=== PATIENT | female | born 1980 | race Caucasian/White ===

== ENCOUNTER → 2017-10-08 07:06 | Outpatient (CLI) | payer BC, SELFPAY ==
[2017-10-08 08:45] LABS: Alanine Aminotransferase 17 U/L (12-78); Albumin Level 4.1 gm/dL (3.4-5.0); Albumin/Globulin Ratio 1.3 (1.1-1.8); Alkaline Phosphatase 58 U/L (46-116); Anion Gap 13.9 mEq/L (5-15); Aspartate Amino Transferase 13 U/L (15-37); Bilirubin,Total 0.7 mg/dL (0.2-1.0); Blood Urea Nitrogen 14 mg/dL (7-18); Calcium 9.3 mg/dL (8.5-10.1); Carbon Dioxide 28 mmol/L (21.0-32.0); Chloride 101 mmol/L (98-107); Chol/HDL Ratio 4.7 (1-3.5); Cholesterol 214 mg/dL (140-200); Creatinine,Serum 0.76 mg/dL (0.55-1.02); Estimated Glomerular Filt Rate 85 ml/min (>60); GFR (African American) 103 ML/MIN (>60); Globulin 3.1 gm/dl (1.3-3.2); Glucose 103 mg/dL (74-106); HDL Cholesterol 46 mg/dL (29-89); LDL Cholesterol 153 mg/dL (0-130); Potassium 3.9 mmoL/L (3.5-5.1); Sodium 139 mmol/L (136-145); Total Protein,Serum 7.2 gm/dL (6.4-8.2); Triglycerides 75 mg/dL (30-200); VLDL Cholesterol 15 mg/dL (0-40)
[2017-10-10 06:20] LABS: Vitamin B12 1364 pg/mL (232-1245)
== END ==
PROVIDERS: Visit Provider Nurse Practitioner Family
DX: Z00.00 Encounter for general adult medical examination without abnormal findings (principal); E78.00 Pure hypercholesterolemia, unspecified; E53.8 Deficiency of other specified B group vitamins
CPT/HCPCS: 36415; 80053; 80061; 82607

== ENCOUNTER → 2018-04-09 12:21 | Outpatient (CLI) | payer BC, SELFPAY ==
[2018-04-09 14:45] LABS: HCG,Quantitative 451 mIU/mL
== END ==
PROVIDERS: Visit Provider Internal Medicine Adolescent Medicine
DX: N91.2 Amenorrhea, unspecified (principal)
CPT/HCPCS: 36415; 84702

== ENCOUNTER → 2018-04-11 09:54 | Outpatient (CLI) | payer BC, OTHER, SELFPAY ==
[2018-04-11 15:57] LABS: HCG,Quantitative 417 mIU/mL
== END ==
PROVIDERS: Visit Provider Internal Medicine Adolescent Medicine
DX: N91.2 Amenorrhea, unspecified (principal)
CPT/HCPCS: 36415; 84702

== ENCOUNTER → 2018-04-14 08:25 | Outpatient (CLI) | payer BC, OTHER, SELFPAY ==
--- NOTE | 2018-04-14 08:34 | US_ITS ---
US OB transvaginal HISTORY: ITS.REASON: US OB Dates- R/O Ectopic check dates ORDERING PHYSICIAN: Usman Roth MD PATIENT AGE: 37 years COMPARISON: None FINDINGS: There is a small anechoic area within the endometrium which measures approximately 3 mm. This could be due to a very small gestational sac. No pole or heart tones are present. There is a hypoechoic area within the left ovary which measures 15 x 12 mm. There are low-level internal echoes within this region with hypervascular flow around this area. Small right ovarian cyst also noted at 1 cm. No cul-de-sac fluid. IMPRESSION: 1. 3 mm hypoechoic area within the endometrium which could be due to a small gestational sac or pseudogestational sac. 2. Complex left ovarian cyst. 3. Cannot confirm viable intrauterine gestation at this time. Ectopic cannot be excluded based on these findings. Suggest correlation with serial beta-hCGs and follow-up ultrasound
[2018-04-14 14:00] LABS: HCG Qualitative, Serum Positive (Negative)
== END ==
PROVIDERS: Nurse Practitioner Family; PCP Internal Medicine Adolescent Medicine; Visit Provider Nurse Practitioner Obstetrics & Gynecology
DX: O00.91 Unspecified ectopic pregnancy with intrauterine pregnancy (principal); O26.841 Uterine size-date discrepancy, first trimester
CPT/HCPCS: 36415; 76817; 84703

== ENCOUNTER → 2018-04-17 08:52 | Outpatient (CLI) | payer BC, OTHER, SELFPAY ==
[2018-04-17 11:09] LABS: HCG,Quantitative 2137 mIU/mL
== END ==
PROVIDERS: Visit Provider Nurse Practitioner Obstetrics & Gynecology
DX: Z34.90 Encounter for supervision of normal pregnancy, unspecified, unspecified trimester (principal)
CPT/HCPCS: 36415; 84702

== ENCOUNTER 2018-04-20 01:09 | Observation (INO) ==
[2018-04-20 01:29] LABS: Appearance,Urine SL CLOUDY (Clear); Bilirubin,Urine Negative (Negative); Blood, Urine TRACE-I (Negative); Color,Urine YELLOW (Yellow); Glucose,Urine (UA) Negative (Negative); Ketones,Urine Negative (Negative); Leukocyte Esterase,Urine Negative (Negative); Microscopic, Urine URINE MICROSCOPIC (MICROSCOPIC); Protein,Urine Negative (Negative); Specific Gravity, Urine >= 1.030 (1.005-1.030); Urobilinogen,Urine 0.2 EU/dl (0.2)
[2018-04-20 01:33] LABS: Amorphous Sediment,Urine Trace /lpf; Squamous Epithelial Cell,Urine 20-50 #/hpf (0-5)
[2018-04-20 01:35] LABS: Basophils # 0.1 K/mm3 (0-0.2); Basophils % 0.6 % (0.1-2.0); Eosinophils # 0.3 K/mm3 (0.0-0.4); Eosinophils % 3.1 % (0.1-12.0); Hematocrit 37.9 % (37.0-47.0); Hemoglobin 12.6 g/dL (12.2-16.2); Lymphocytes # 2.1 K/mm3 (0.7-4.5); Lymphocytes % 25.6 % (10-50); Mean Corpuscular HGB Conc 33.2 g/dL (31.8-35.4); Mean Corpuscular Hemoglobin 29.1 pg (27.0-31.2); Mean Corpuscular Volume 87.6 fl (81-99); Mean Platelet Volume 7.3 fl (7.4-10.4); Monocytes # 0.5 K/mm3 (0.1-1.0); Monocytes % 5.9 % (1.7-9.3); Neutrophils # 5.3 K/mm3 (1.8-7.8); Neutrophils % 64.7 % (37.0-80.0); Platelet Count 311 K/mm3 (142-424); Red Blood Count 4.33 M/mm3 (4.20-5.40); Red Cell Distribution Width 12.3 % (11.5-17.5); White Blood Count 8.2 K/mm3 (4.8-10.8)
--- NOTE | 2018-04-20 01:39 | Emergency Department Note ---
ED Disposition Clinical Impression: Ectopic Qualifiers: Location of ectopic : tubal Intrauterine status: without intrauterine Laterality: right Qualified Code(s): O00.101 - Right tubal without intrauterine Disposition: Still a Patient Condition on Discharge: Fair Referrals: Arpan Cary MD [Primary Care Provider] - - Critical Care Critical Care Time: No Attestation: On 04/20/18, the high probability of a clinically significant, sudden or life threatening deterioration of the following system(s) required my full and direct attention, intervention and personal management. The time I documented below is in addition to time spent performing reported procedures but includes the following listed in this critical care notation. Medical Decision Making - [place] Inquiry Pt receiving controlled substance: No Vital Signs: 04/20/18 01:10 04/20/18 01:40 Temperature 98.6 F Temperature Source Oral Pulse Rate [Right Brachial] 80 84 Respiratory Rate 16 16 Blood Pressure [Right Arm] 138/83 134/81 Blood Pressure Mean [Right Arm] 101 98 Blood Pressure Source [Right Arm] Automatic Cuff Automatic Cuff Blood Pressure Position [Right Arm] Sitting Sitting 02 Sat by Pulse Oximetry 98 98 Oxygen Delivery Method Room Air Room Air - Lab Data Lab Results 04/20/18 01:13: Urine Color Yellow, Urine Appearance Sl cloudy, Urine pH 6.0, Ur Specific [place] >= 1.030, Urine Protein Negative, Urine Glucose (UA) Negative, Urine Ketones Negative, Urine Blood Trace-i, Urine Nitrate Negative, Urine Bilirubin Negative, Urine Urobilinogen 0.2, Ur Leukocyte Esterase Negative, Urine RBC 3-5, Ur Squamous Epith Cells 20-50, Amorphous Sediment Trace 04/20/18 01:20: WBC 8.2, RBC 4.33, Hgb 12.6, Hct 37.9, MCV 87.6, MCH 29.1, MCHC 33.2, RDW 12.3, Plt Count 311, MPV 7.3 L, Neut % (Auto) 64.7, Lymph % (Auto) 25.6, [place] % (Auto) 5.9, Eos % (Auto) 3.1, Baso % (Auto) 0.6, Neut # (Auto) 5.3, Lymph # (Auto) 2.1, Bee # (Auto) 0.5, Eos # (Auto) 0.3, Baso # (Auto) 0.1 04/20/18 01:20: Sodium 137, Potassium 4.0, Chloride 102, Carbon Dioxide 24, Anion Gap 15.0, BUN 11, Creatinine 0.80, Estimated Creat Clear 96, Estimated GFR 80, Est GFR ( Amer) 97, Glucose 103, Calcium 9.1, Total Bilirubin 0.4, AST 14 L, ALT 23, Alkaline Phosphatase 54, Total Protein 7.8, Albumin 3.9, Globulin 3.9 H, Albumin/Globulin Ratio 1.0 L, HCG, Quant 3789 H Result diagrams: 04/20/18 01:20 04/20/18 01:20 Orders (Tests/Meds): ED MEDICATIONS Generic Name Dose Route Start Last Admin Trade Name Freq PRN Reason Stop Dose Admin Sodium Chloride 10 ml 04/20/18 01:20 Saline Flush 10ml Syringe IV 05/20/18 01:19 NEEDED PRN Maintain IV Site ORDERS Category Date Time Status UA [Urinalysis and Microscopic] Stat Lab 04/20/18 01:13 Ordered US OB transvaginal Stat Ultrasound 04/20/18 01:26 Ordered - US Data US Images: Pelvis Findings Narrative: As per [facility] procedure, ultrasound report received from laser/electro optics technician: No intrauterine . The previously seen 3 mm hypoechoic area in the endometrium is gone. Right adnexal mass with ring of fire sign. Consistent with ectopic . No free pelvic fluid or signs of hemorrhage/rupture. - Physician Consults Physician Consulted: Onesimo Time: 02:52 Reason -: Obstetrical Eval/Care Comment/Response: Agrees to admit the patient to the hospital. We discussed the patient's clinical information, including history, exam, laboratory and radiology results and ED course. Per hospital procedure, I will write temporary bridge inpatient orders on the patient. Specific orders requested by the admitting physician: Admit and he will take the patient to surgery this morning. General Adult HPI - General Chief complaint: Abdominal Pain Stated complaint: Six weeks ;Abdominal Pain Time Seen by Provider: 04/20/18 01:39 Mode of Arrival: Ambulatory Limitations: No Limitations Description of Symptoms (Recalled from ER Triage Doc. by RN): Pt c/o lower stabbing abd pain. Advises she is 6 weeks Denies any vaginal bleeding - History of Present Illness HPI narrative: Currently , 5 para 2 AB 2 last normal menstrual period 11/19/18. Previous tubal ligation reversal. Complains of sharp suprapubic pain to the right of midline that woke her up about an hour ago. Pain has decreased since onset, but is still present. No vaginal bleeding. Had quantitative beta-hCG on 04/09/18 451. 417 on 04/11/18. 2137 on 04/17/18. Pelvic ultrasound 04/16/18: IMPRESSION: 1. 3 mm hypoechoic area within the endometrium which could be due to a small gestational sac or pseudogestational sac. 2. Complex left ovarian cyst. 3. Cannot confirm viable intrauterine gestation at this time. Ectopic cannot be excluded based on these findings. Suggest correlation with serial beta-hCGs and follow-up ultrasound - Related Data Home Medications Medication Instructions Recorded Confirmed No Known Home Medications 04/11/18 04/20/18 Allergies Allergy/AdvReac Type Severity Reaction Status Date / Time No Known Allergies Allergy Verified 04/11/18 08:54 [facility] History - Hepatitis A Screen Drug use history?: No High risk sexual behaviors?: No History of sexually transmitted infection?: No Currently employed?: No Childcare worker?: No Do you have indoor plumbing?: Yes Do you have electricity?: Yes Attestation statement:: This patient has been screened for Hepatitis A risk factors. I have reviewed the patient's past medical history: Yes Medical History: Denies:: Cancer, Diabetes Mellitus Type 1, Diabetes Mellitus Type 2, MRSA Amputation: No Fractures: No - Social History Alcohol Intake: never - Psychiatric History Expresses thoughts of harming self/others: None Suicide Plan Description: No Plan Family Hx:: No significant family history Para: 2 ROS Obtained: Yes Systems reviewed as appropriate & no additional complaints - Gastrointestinal Gastrointestingal: Reports: abdominal pain. Denies: diarrhea, vomiting - Genitourinary Female Genitourinary: Denies abnormal vaginal bleeding, Denies dysuria Physical Exam - General General appearance: alert, in no apparent distress - Head Head exam: atraumatic, normocephalic - Eye Eye exam: Present: PERRL, EOMI - ENT ENT exam: Present: mucous membranes moist - Neck Neck exam: Present: normal inspection, trachea midline - Chest Chest inspection: Present: normal inspection, symmetric chest wall rise - Respiratory Respiratory exam: Present: normal lung sounds bilaterally. Absent: respiratory distress - Cardiovascular Cardiovascular exam: Present: regular rate, normal rhythm, normal heart sounds - Abdominal Exam Abdominal exam: Present: soft, tenderness (Midline and right suprapubic area). Absent: distention, guarding, rebound, rigidity - Extremities Exam Extremities exam: Present: normal inspection - Neurological Exam Neurological exam: Present: alert, oriented X3 - Psychiatric Psychiatric exam: Present: normal affect, normal mood - Skin Skin exam: Present: warm, dry
[2018-04-20 02:09] LABS: Albumin Level 3.9 gm/dL (3.4-5.0); Bilirubin,Total 0.4 mg/dL (0.2-1.0); Calcium 9.1 mg/dL (8.5-10.1); Globulin 3.9 gm/dl (1.3-3.2); Total Protein,Serum 7.8 gm/dL (6.4-8.2)
--- NOTE | 2018-04-20 06:40 | Progress Note ---
Internal Medicine - PN: Subj *Date: 04/20/18 *Time: 06:28 Interval history: This 37-year-old 5, para 2 (2 vaginal deliveries), AB 2 white female was admitted through the emergency room with the following history: In 2003 she had a tubal ligation. In 2011 she underwent a tubal reversal, but did not conceive. Subsequently she had a hysterosalpingogram which showed complete blockage of her right tube and patency of her left tube. However she still did not conceive until recently. The other surgery was left scopic cholecystectomy. When seen by Dr. Roth, her initial beta hCG on 04/09/18 was 451, and a subsequent one on 08/10/2017 actually dropped slightly to 417. Her next beta-hCG on 04/17/2018 was 2137. The patient arrived in the emergency room shortly after midnight this morning with a history of sudden onset of severe lower abdominal pain which had by that time localized to the right side. There was no vaginal bleeding. Hemoglobin/hematocrit was 12.6/37.9%. Blood type a positive. Beta hCG this morning is 3789. Her last. Of 03/10/18 puts her at 6 weeks of gestation. A vaginal ultrasound was done and is highly suggestive of a right-sided ectopic with a "ring of fire" evident and no evidence of intrauterine gestation. Her physical examination is otherwise completely normal. She is relatively comfortable at this time after being medicated. She has no known allergies to medications. I have discussed the situation and detail with the patient and her . They are unsure about trying for another , given the high risk of a subsequent ectopic. The plan is for a laparoscopic procedure to include right salpingectomy, followed by chromic pertubation to assess the patency (or lack thereof) of the left tube. If that tube appears to be blocked, tubal fulguration will be carried out on that side to obviate the risk of future ectopics. The patient and her understand the risks and benefits of the procedure and the possible need for an open procedure should it become necessary. Exam Vital signs and Labs for Last 24 Hours: Temp Pulse Resp BP Pulse Ox 98.6 F 65 18 108/65 L 98 04/20/18 04:18 04/20/18 04:18 04/20/18 04:18 04/20/18 04:18 04/20/18 04:18 Laboratory Results - last 24 hr 04/20/18 01:13: Urine Color Yellow, Urine Appearance Sl cloudy, Urine pH 6.0, Ur Specific [place] >= 1.030, Urine Protein Negative, Urine Glucose (UA) Negative, Urine Ketones Negative, Urine Blood Trace-i, Urine Nitrate Negative, Urine Bilirubin Negative, Urine Urobilinogen 0.2, Ur Leukocyte Esterase Negative, Urine RBC 3-5, Ur Squamous Epith Cells 20-50, Amorphous Sediment Trace 04/20/18 01:20: WBC 8.2, RBC 4.33, Hgb 12.6, Hct 37.9, MCV 87.6, MCH 29.1, MCHC 33.2, RDW 12.3, Plt Count 311, MPV 7.3 L, Neut % (Auto) 64.7, Lymph % (Auto) 25.6, [place] % (Auto) 5.9, Eos % (Auto) 3.1, Baso % (Auto) 0.6, Neut # (Auto) 5.3, Lymph # (Auto) 2.1, [place] # (Auto) 0.5, Eos # (Auto) 0.3, Baso # (Auto) 0.1 04/20/18 01:20: Sodium 137, Potassium 4.0, Chloride 102, Carbon Dioxide 24, Anion Gap 15.0, BUN 11, Creatinine 0.80, Estimated Creat Clear 96, Estimated GFR 80, Est GFR ( Amer) 97, Glucose 103, Calcium 9.1, Total Bilirubin 0.4, AST 14 L, ALT 23, Alkaline Phosphatase 54, Total Protein 7.8, Albumin 3.9, Globulin 3.9 H, Albumin/Globulin Ratio 1.0 L, HCG, Quant 3789 H 04/20/18 04:35: Blood Type A Positive, Antibody Screen Negative I & O for Last 24 hours: Intake & Output 04/17/18 04/18/18 04/19/18 04/20/18 11:59 11:59 11:59 11:59 Weight 140 lb
--- NOTE | 2018-04-20 07:26 | Progress Note ---
[facility] Anesthesia Checklist - Patient Identification Patient Identification: Arm Band, Verbal (Name & ) - Structural Data Admitted From: Inpatient Planned Operative Procedure/s: laporoscopy Consent for Planned Operative Procedure(s) Verified: Yes Verified Documents: History and Physical - NPO Status Verified Time NPO: 00:00 - Additional verifications Patient : Yes Anesthesia Reactions: No Hx Blood Transfusions: No Blood Transfusion Reaction: No Cephalosporin Allergy: No Previous Colonoscopy: No - Cardiovascular Assessment Heart Sounds: S1 & S2 Pulse Strength: Baseline Pulse Rhythm: Regular Peripheral Edema: No - Airway Assessment C-Spine Mobility Assessed: Yes TMJ Mobility Assessed: Yes Dentition: Good Dentition - Neurological Assessment Level of Consciousness: Awake, Alert, Appropriate Hx Seizures: No Numbness or tingling in extremities: No - Anesthesia Plan Anesthesia Risk discussed: Yes Anesthesia Plan: Verified ASA Class: II Anesthesia Type: General [facility] History I have reviewed the patient's past medical history: Yes Medical History: Denies:: Cancer, Diabetes Mellitus Type 1, Diabetes Mellitus Type 2, MRSA Other Surgeries: Yes: Cholecystectomy, Tubal Ligation. No: Amputation: No Fractures: No - *Social History Alcohol Intake: never - Psychiatric History Expresses thoughts of harming self/others: None Suicide Plan Description: No Plan *Family Hx:: No significant family history Para: 2
--- NOTE | 2018-04-20 08:58 | Progress Note ---
[facility] Anesthesia Record Part I Intake, IV Amount: 500 Estimated blood loss (mL): 10 Urine output (mL): 0 Blood Products used (#): none Blood Pressure: 114/78 SaO2: 96 Pulse Rate: 63 Respiratory Rate: 20 Temperature: 97.4 F Patient is:: Drowsy, Stable Stable to PACU at:: 08:58
--- NOTE | 2018-04-20 08:59 | Progress Note ---
[facility] Anesthesia Record Part II Discharge Time: 09:28 Destination: Obstetric Gynecology Dept PACU nurse assessment reviewed?: Yes Patient Condition:: Good Anesthesia Complications:: None
--- NOTE | 2018-04-20 09:03 | Operative Note ---
Date of procedure: 04/20/18 Pre-op Diagnosis:: Right ectopic Post-op Diagnosis:: 1. Right distal tubal ectopic . 2. Patent left fallopian tube. Procedure performed:: 1. Pelviscopic right salpingo-oophorectomy. 2. Chromic pertubation. Surgeon:: Pavan Echols MD FOXING PAINTER:: Arpan Berg Anesthesia: GETA Estimated blood loss (mL): 100 Operative findings:: 1. Right distal tubal ectopic , in the process of tubal . 2. Right tubal adherence to the right ovary. 3. Ultimate patency of the left tube after encountering initial resistance to chromic pertubation. Operative note:: After the patient was prepped and draped in usual fashion and general with no palpable adnexal masses. A weighted speculum was placed within the posterior fourchette of the vagina, and the anterior lip of the cervix was grasped with a single-tooth tenaculum. The cervix was easily dilated to #14 Hegar dilators, and then a HUMI uterine elevator was inserted, and the bulb inflated for easy uterine manipulation during the laparoscopy. After appropriate regloving, the skin on either side of the umbilicus was tented up with towel clips. A small incision was made in the base of the umbilicus with a knife, and a Veress needle was inserted into the abdominal cavity. After demonstration of negative press ure, an adequate pneumoperitoneum was created with carbon dioxide gas. The Veress needle was then replaced with a trocar and cannula, using the Groupspeak system, and the trocar replaced with a laparoscope. The uterus was slightly enlarged and symmetrical. It was coated with blood. Old blood was evident around the reflection of the bladder peritoneum anteriorly and in the cul-de-sac. This was suctioned. The left tube and ovary appeared normal, albeit with a 1-2 cm left ovarian cyst. Fimbriated end of the left tube also appeared normal. On the right side, the tube was followed out to its most distal segment, where an obvious unruptured ectopic was present. A small amount of blood was present at the fimbria, suggesting that a tubal was in process. The distal end of the tube was densely adherent to the normal- appearing ovary. Consideration was given to the likely interruption of ovarian blood supply with an attempt at dissecting the ovary free, and the vascular nature of that area. It was decided to perform a right salpingo-oophorectomy. After transillumination and under direct visualization, accessory ports were placed in the right and left lower quadrants. Using a combination of endo- Babcocks and Endo RENEE staplers, the right ovarian and infundibulopelvic ligaments were crossclamped and stapled, thus removing the right adnexa with its associated ectopic. The staple line was cauterized for further hemostasis. At this point chromic pertubation was carried out with methylene blue dye through the HUMI uterine elevator. Initial resistance was met, consistent with intratubal adhesions, but resistance was overcome, and blue dye was then seen to flow freely through the left fimbria. The dye was suctioned. The pelvis was inspected for any other pathology, and none was found. An Endopouch basket was placed through the left lower quadrant port and the right adnexal specimen was placed within it and brought up through that port. The pneumoperitoneum was reduced, and the instruments were removed under direct visualization. The skin incisions were infused with a dilute solution of Marcaine, as a local anesthetic, and closed with subcuticular sutures of 3-0 Vicryl. The wounds were appropriately dressed. The HUMI was deflated and removed. The sponge and needle counts correct. The estimated blood loss was 100 cc. The patient tolerated the procedure well, was taken to PACU in excellent condition. She will be discharged today, if her vital stable. Her blood type is A+, and therefore she is not a candidate for RhoGam. Condition: stable Disposition: PACU Specimens:: Right tube and ovary. Complications:: None.
--- NOTE | 2018-04-20 09:43 | Discharge Summary ---
General - General Admission date:: 04/20/18 Discharge date: 04/20/18 (This 37-year-old 5, para 2, AB 2 white female was admitted to the emergency room with right-sided pelvic pain and an ultrasound consistent with a right ectopic . Her history included a tubal ligation in 2007 and a tubal reanastomosis in 2011. Her blood type is A+. She was taken to the operating room, where she underwent a pelviscopic right salpingo-oophorectomy for a distal tubal ectopic , adherent to the right ovary. Chromic pertubation initially met with resistance, but ultimately led to free flow of dye through the left tube, demonstrating patency. The estimated blood loss for the procedure was 100 cc. The patient tolerated the procedure well, and was recovered in good condition. She will be discharged today, if her vital signs are stable. She is given a prescription for Lortab 5/325 #20), 1 p.o. q. 4-6h as needed pain. She is given appropriate instructions as to diet, exercise, and wound care, and she is to follow-up with Dr. Roth (her regular mechanical designer) in 1 week.) Objective Vital signs: Temp Pulse Resp BP Pulse Ox 97.4 F L 63 20 114/78 100 04/20/18 08:58 04/20/18 08:58 04/20/18 08:58 04/20/18 08:58 04/20/18 07:37 Results Labs on day of discharge: Labs from last 24 hours 04/20/18 04/20/18 04/20/18 04:35 01:20 01:20 WBC 8.2 RBC 4.33 Hgb 12.6 Hct 37.9 MCV 87.6 MCH 29.1 MCHC 33.2 RDW 12.3 Plt Count 311 MPV 7.3 L Neut % (Auto) 64.7 Lymph % (Auto) 25.6 [place] % (Auto) 5.9 Eos % (Auto) 3.1 Baso % (Auto) 0.6 Neut # (Auto) 5.3 Lymph # (Auto) 2.1 [place] # (Auto) 0.5 Eos # (Auto) 0.3 Baso # (Auto) 0.1 Sodium 137 Potassium 4.0 Chloride 102 Carbon Dioxide 24 Anion Gap 15.0 BUN 11 Creatinine 0.80 Estimated Creat Clear 96 Estimated GFR 80 Est GFR ( Amer) 97 Glucose 103 Calcium 9.1 Total Bilirubin 0.4 AST 14 L ALT 23 Alkaline Phosphatase 54 Total Protein 7.8 Albumin 3.9 Globulin 3.9 H Albumin/Globulin Ratio 1.0 L HCG, Quant 3789 H Urine Color Urine Appearance Urine pH Ur Specific [place] Urine Protein Urine Glucose (UA) Urine Ketones Urine Blood Urine Nitrate Urine Bilirubin Urine Urobilinogen Ur Leukocyte Esterase Urine RBC Ur Squamous Epith Cells Amorphous Sediment Blood Type A Positive Antibody Screen Negative 04/20/18 01:13 WBC RBC Hgb Hct MCV MCH MCHC RDW Plt Count MPV Neut % (Auto) Lymph % (Auto) [place] % (Auto) Eos % (Auto) Baso % (Auto) Neut # (Auto) Lymph # (Auto) [place] # (Auto) Eos # (Auto) Baso # (Auto) Sodium Potassium Chloride Carbon Dioxide Anion Gap BUN Creatinine Estimated Creat Clear Estimated GFR Est GFR ( Amer) Glucose Calcium Total Bilirubin AST ALT Alkaline Phosphatase Total Protein Albumin Globulin Albumin/Globulin Ratio HCG, Quant Urine Color Yellow Urine Appearance Sl cloudy Urine pH 6.0 Ur Specific [place] >= 1.030 Urine Protein Negative Urine Glucose (UA) Negative Urine Ketones Negative Urine Blood Trace-i Urine Nitrate Negative Urine Bilirubin Negative Urine Urobilinogen 0.2 Ur Leukocyte Esterase Negative Urine RBC 3-5 Ur Squamous Epith Cells 20-50 Amorphous Sediment Trace Blood Type Antibody Screen Discharge Plan - Patient Discharge Instructions - Follow up Plan Home Medications: Home Medications Medication Instructions Recorded Confirmed Type No Known Home Medications 04/11/18 04/20/18 History Prescriptions/Medication Reconciliation: No Action No Known Home Medications
[2018-04-20 10:23] LABS: Hematocrit 35.2 % (37.0-47.0); Hemoglobin 11.5 g/dL (12.2-16.2)
[2018-04-20 10:49] VITALS: BP 118/68
== END 2018-04-20 11:55 | disposition home or self-care (01) ==
LOC: OB 01:09 → ER 01:09 → OB 03:52
PROVIDERS: ADMIT Obstetrics & Gynecology; ATTEND Nurse Practitioner Obstetrics & Gynecology
DX: O00.101 Right tubal pregnancy without intrauterine pregnancy
CPT/HCPCS: 36415; 76817; 80053; 81001; 84702; 85014; 85018; 85025; 86850; 94761; 99284; G0378; J0131; J2405; J2710

== ENCOUNTER 2020-01-19 17:30 | Emergency (ER) | payer OTHER, SELFPAY ==
[2020-01-19 18:10] VITALS: BP 129/84; PULSE 77; RESP 20; O2SAT 100; BMI 22.3
--- NOTE | 2020-01-19 18:48 | HMH.EDUTC ---
[facility] [place] Disposition Clinical Impression: UTI (urinary tract infection) Qualifiers: Urinary tract infection type: site unspecified Hematuria presence: with hematuria Qualified Code(s): N39.0 - Urinary tract infection, site not specified Disposition: Home, Self-Care Condition on Discharge: Good Instructions: Trimethoprim/Sulfamethoxazole (Alternative Therapy), Urinary Tract Infection, DI for Urinary Tract Infection (UTI), Phenazopyridine Additional Instructions: *Increase fluids. Water not Soda or Tea *Start antibiotic immediately and be sure to take as ordered for the FULL length of time although you should start to see improvement over the next 48 hours *Pyridium as needed Remember this medication will turn your urine [place]. This is normal but it will stain what ever it gets on *You should not use Pyridium for more than 48 hours. If so , follow up with your primary physician to review urine culture and ensure that antibiotic is adequate for infection *Be SURE to follow up anytime for new or worsening symptoms with your family doctor. AND in 48 hours for urine culture results with your family doctor, if you do not have a doctor then you may call back to the [facility] for urine culture results and further treatment. We do recommend that you choose and establish care with a Primary Care Physician. AND follow up with them in 10-14 days to repeat UA to ensure infection is resolved and blood no longer present *Be sure to let your PCP know that we sent urine cultures from the [facility] so they can follow up to ensure that you area the on the correct antibiotic Call your doctor office and make appointment for 48 hours (2 days from today) to follow up and get the results of your urine culture and further treatment Return if needed Straight to ER if any worsening of symptoms or fever, chills, body aches or abdominal pain You had blood in your urine make sure to follow up with Family Doctor as advised Prescriptions: Sulfamethoxazole/Trimethoprim [Bactrim DS tablet] 1 each PO BID 10 Days #20 tab Transmission Status: Received by [facility] #[id number] Phenazopyridine HCl [Pyridium 200mg Tablet] 200 pow PO TID #6 tab Transmission Status: Received by [facility] #[id number] Referrals: Arpan Cary MD [Primary Care Provider] - As needed Time of Disposition: 18:53 Medical Decision Making - Hood Inquiry Pt receiving controlled substance: No Hood was queried for this patient: No Vital Signs: 01/19/20 18:10 01/19/20 19:01 Temperature 98.2 F Pulse Rate 77 Pulse Rate [Right Brachial] 77 Respiratory Rate 20 20 Blood Pressure 129/84 Blood Pressure [Right Arm] 129/84 Blood Pressure Mean [Right Arm] 99 Blood Pressure Source [Right Arm] Automatic Cuff Blood Pressure Position [Right Arm] Sitting 02 Sat by Pulse Oximetry 100 Oxygen Delivery Method Room Air - Lab Data Lab results reviewed: Yes: I reviewed the patient's lab results. Lab Results 01/19/20 17:50: Urine Color Yellow, Urine Appearance Clear, Urine pH 6.0, Ur Specific [place] 1.020, Urine Protein 1+, Urine Glucose (UA) Negative, Urine Ketones Negative, Urine Blood 3+, Urine Nitrate Positive A, Urine Bilirubin Negative, Urine Urobilinogen 0.2, Ur Leukocyte Esterase 2+ A Orders (Tests/Meds): ED MEDICATIONS Discontinued Medications Generic Name Dose Route Start Last Admin Trade Name Freq PRN Reason Stop Dose Admin Ceftriaxone Sodium 1 gm 01/19/20 18:57 01/19/20 18:59 Rocephin 1gm Vial IM 01/19/20 18:58 1 gm ONCE ONE Administration Protocol Lidocaine HCl 0 ml 01/19/20 18:57 01/19/20 19:00 Lidocaine 1% 5ml Pf Vial IM 01/19/20 18:58 2.1 ml ONCE ONE Administration ORDERS Category Date Time Status Urine Culture Stat Micro 01/19/20 17:50 Received [facility] [place] HPI - General Stated complaint: Possible UTI Time Seen by Provider: 01/19/20 18:49 Mode of Arrival: Ambulatory Source of Information: Patient Limitations: No Limita
[2020-01-19 19:01] VITALS: BP 129/84; PULSE 77; RESP 20; TEMP 36.8; O2SAT 100
[2020-01-19 19:03] LABS: Apearance,Urine Clear (Clear); Color,Urine Yellow (Yellow); Protein,Urine 1+ (Negative)
[2020-01-19 19:04] LABS: Bilirubin,Urine Negative (Negative); Blood, Urine 3+ (Negative); Glucose,Urine (UA) Negative (Negative); Ketones,Urine Negative (Negative); UTC Leukocyte Esterase,Urine 2+ (Negative); UTC Nitrate,Urine Positive (Negative); Urobilinogen,Urine 0.2 EU/dl (0.2)
== END 2020-01-19 19:05 | disposition home or self-care (01) ==
PROVIDERS: Emergency Provider Nurse Practitioner; PCP Internal Medicine Adolescent Medicine
DX: N30.00 Acute cystitis without hematuria (principal); E78.5 Hyperlipidemia, unspecified; Z90.49 Acquired absence of other specified parts of digestive tract
CPT/HCPCS: 81003; 87086; 87088; 87186; 96372; 99202

== ENCOUNTER 2020-04-24 08:03 | Emergency (ER) | payer OTHER, SELFPAY ==
[2020-04-24] VITALS (7 sets, daily range): BP systolic 113–135; BP diastolic 72–90; PULSE 62–87; RESP 16–20; TEMP 36.8; O2SAT 98–100; BMI 22.3
--- NOTE | 2020-04-24 08:13 | HMH.EDGENADL ---
ED Disposition Clinical Impression: Enteritis Abdominal pain Qualifiers: Abdominal location: generalized Qualified Code(s): R10.84 - Generalized abdominal pain Disposition: Home, Self-Care Condition on Discharge: Good Additional Instructions: You were seen on an emergency basis. It is very important that you follow up with your primary care provider and/or specialist as we discussed within 2 days. All labs and imaging were obtained and interpreted here to rule out life threatening emergencies, but your final results should be reviewed by your primary doctor at your follow up appointment. Please return to the emergency department if any of your symptoms worsen, or if they do not improve as we discussed. Prescriptions: Ciprofloxacin HCl [Cipro 500mg Tab] 500 mg PO BID #20 tab Transmission Status: Pending to [facility] # metroNIDAZOLE [Flagyl 500mg Tablet] 500 mg PO TID 10 Days #30 tab Transmission Status: Pending to [facility] [employer] [facility] # Referrals: PCP,No [Primary Care Provider] - - Critical Care Critical Care Time: No Attestation: On 04/24/20, the high probability of a clinically significant, sudden or life threatening deterioration of the following system(s) required my full and direct attention, intervention and personal management. The time I documented below is in addition to time spent performing reported procedures but includes the following listed in this critical care notation. Medical Decision Making - Medical Records Medical records reviewed: Yes: I reviewed the patient's medical records. - Hood Inquiry Pt receiving controlled substance: No Vital Signs: 04/24/20 08:04 04/24/20 08:47 04/24/20 09:05 Pulse Rate [Right] 87 81 85 Respiratory Rate 16 18 18 Blood Pressure [Right Arm] 135/85 115/76 114/72 Blood Pressure Mean [Right Arm] 101 89 86 Blood Pressure Source [Right Arm] Automatic Cuff Automatic Cuff Automatic Cuff Blood Pressure Position [Right Arm] Sitting Supine 02 Sat by Pulse Oximetry 100 100 100 Oxygen Delivery Method Room Air 04/24/20 09:30 04/24/20 10:00 Pulse Rate [Right] 62 69 Respiratory Rate Blood Pressure [Right Arm] 117/80 115/82 Blood Pressure Mean [Right Arm] 92 93 Blood Pressure Source [Right Arm] Automatic Cuff Automatic Cuff Blood Pressure Position [Right Arm] Sitting Sitting 02 Sat by Pulse Oximetry 100 100 Oxygen Delivery Method Room Air Room Air - Lab Data Lab Results 04/24/20 08:07: Urine Color Yellow, Urine Appearance Clear, Urine pH 7.0, Ur Specific [place] 1.020, Urine Protein Negative, Urine Glucose (UA) Negative, Urine Ketones Trace, Urine Blood 1+, Urine Nitrate Negative, Urine Bilirubin Negative, Urine Urobilinogen 0.2, Ur Leukocyte Esterase Trace, Urine RBC 5-10, Urine WBC 3-5, Ur Squamous Epith Cells 10-20, Amorphous Sediment 1+, Urine Bacteria None 04/24/20 08:07: Urine HCG, Qual Negative 04/24/20 08:29: WBC 4.9, RBC 4.93, Hgb 14.4, Hct 43.3, MCV 87.9, MCH 29.2, MCHC 33.2, RDW 12.7, Plt Count 306, MPV 7.7, Neut % (Auto) 65.0, Lymph % (Auto) 24.3, Ritchie % (Auto) 7.9, Eos % (Auto) 1.6, Baso % (Auto) 1.2, Neut # (Auto) 3.2, Lymph # (Auto) 1.2, Ritchie # (Auto) 0.4, Eos # (Auto) 0.1, Baso # (Auto) 0.1 04/24/20 08:29: Sodium 138, Potassium 3.8, Chloride 103, Carbon Dioxide 25, Anion Gap 13.8, BUN 14, Creatinine 0.80, Estimated Creat Clear 87, Estimated GFR 79, Est GFR ( Amer) 96, Glucose 110 H, Calcium 9.8, Total Bilirubin 1.1, AST 30, ALT 12, Alkaline Phosphatase 49, Total Protein 8.2, Albumin 4.8, Globulin 3.4 H, Albumin/Globulin Ratio 1.4 Result diagrams: 04/24/20 08:29 04/24/20 08:29 Orders (Tests/Meds): ED MEDICATIONS Generic Name Dose Route Start Last Admin Trade Name Freq PRN Reason Stop Dose Admin Lactated Ringer's 500 mls @ 999 mls/hr 04/24/20 08:15 04/24/20 08:39 Lactated Ringer's 1000 Ml Bag IV 04/24/20 08:45 500 mls/hr .Q31M JASMIN Administration Discontinued Medications Generic Nam
[2020-04-24 08:18] LABS: Microscopic, Urine URINE MICROSCOPIC (MICROSCOPIC)
[2020-04-24 08:22] LABS: Appearance,Urine CLEAR (Clear); Bilirubin,Urine Negative (Negative); Blood, Urine 1+ (Negative); Color,Urine YELLOW (Yellow); Glucose,Urine (UA) Negative (Negative); Ketones,Urine TRACE (Negative); Leukocyte Esterase,Urine TRACE (Negative); Nitrate,Urine Negative (Negative); Protein,Urine Negative (Negative); Urobilinogen,Urine 0.2 EU/dl (0.2)
[2020-04-24 08:25] LABS: Urine Pregnancy, HCG Qual. Negative (Negative)
[2020-04-24 08:32] LABS: Amorphous Sediment,Urine 1+ /lpf
--- NOTE | 2020-04-24 08:33 | PC.NURSE ---
Patient request to wait on zofran administration.
[2020-04-24 08:39] LABS: Basophils # 0.1 K/mm3 (0-0.2); Basophils % 1.2 % (0.1-2.0); Eosinophils # 0.1 K/mm3 (0.0-0.4); Eosinophils % 1.6 % (0.1-12.0); Hematocrit 43.3 % (37.0-47.0); Hemoglobin 14.4 g/dL (12.2-16.2); Lymphocytes # 1.2 K/mm3 (0.7-4.5); Lymphocytes % 24.3 % (10-50); Mean Corpuscular HGB Conc 33.2 g/dL (31.8-35.4); Mean Corpuscular Hemoglobin 29.2 pg (27.0-31.2); Mean Corpuscular Volume 87.9 fl (81-99); Mean Platelet Volume 7.7 fl (7.4-10.4); Monocytes # 0.4 K/mm3 (0.1-1.0); Monocytes % 7.9 % (1.7-9.3); Neutrophils # 3.2 K/mm3 (1.8-7.8); Platelet Count 306 K/mm3 (142-424); Red Blood Count 4.93 M/mm3 (4.20-5.40); Red Cell Distribution Width 12.7 % (11.5-17.5); White Blood Count 4.9 K/mm3 (4.8-10.8)
[2020-04-24 08:45] LABS: Alanine Aminotransferase 12 U/L (12-78); Albumin Level 4.8 g/dl (3.5-5.0); Albumin/Globulin Ratio 1.4 (1.1-1.8); Alkaline Phosphatase 49 U/L (38-126); Anion Gap 13.8 mEq/L (5-15); Aspartate Amino Transferase 30 U/L (14-36); Bilirubin,Total 1.1 mg/dl (0.2-1.3); Blood Urea Nitrogen 14 mg/dl (7-17); Calcium 9.8 mg/dl (8.4-10.2); Carbon Dioxide 25 mmol/L (22.0-30.0); Chloride 103 mmol/L (98-107); Creatinine Clearance Estimated 87 mL/min (50-200); Estimated Glomerular Filt Rate 79 ml/min (>60); GFR (African American) 96 ML/MIN (>60); Globulin 3.4 g/dL (1.3-3.2); Glucose 110 mg/dl (74-100); Potassium 3.8 mmoL/L (3.5-5.1); Sodium 138 mmol/L (136-145); Total Protein,Serum 8.2 g/dl (6.3-8.2)
--- NOTE | 2020-04-24 08:49 | PC.NURSE ---
Patient son came out and advised patient changed her mind and is requesting pain medication.
--- NOTE | 2020-04-24 08:51 | PC.NURSE ---
Patient now is requesting zofran as well.
--- NOTE | 2020-04-24 09:02 | CT_ITS ---
PROCEDURE: CT ABDOMEN PELVIS WO CON CLINICAL INDICATION: abd pain and hematuria Lower abdominal pain and hematuria COMPARISON: No exams were available for comparison TECHNIQUE: Axial images obtained with sagittal and coronal reformats. All CT scans at the facility use one or more dose reduction, viz: automated exposure control, ma/kV adjustment per patient size (including targeted exams where dose is matched to indication, i.e. head), or iterative reconstruction technique. FINDINGS: LOWER THORAX: Minimal atelectatic or fibrotic changes are present in the left lung base posteriorly. ABDOMEN & PELVIS: Prior cholecystectomy. The liver has an unremarkable appearance. No renal or ureteral calculi. There is thickening the stomach which could be due to nondistention or gastritis. The spleen and pancreas and adrenal glands have an unremarkable appearance. There is thickening the transverse duodenum and proximal jejunum with a few scattered air-fluid levels. Scattered air-fluid levels are present within the small bowel. No evidence of appendicitis. There is a moderate amount of retained colonic feces. Small amount fluid is present in the pelvis. Multiple unopacified bowel loops in the abdomen or pelvis which could obscure or mimic pathology. If symptoms persist, consider repeat exam with IV and oral contrast.. Scattered small calcific densities are present in the right lower quadrant along the iliac artery and vein region. Linear density is present in the right adnexa and could be related to vascular calcification or and Essure device. No acute bony finding. No renal or ureteral calculi. No hydronephrosis. No free air apparent. IMPRESSION: 1. Scattered air-fluid levels within the small bowel with some thickening of the jejunum and distal duodenum. Enteritis is considered. 2. Multiple unopacified bowel loops in the abdomen or pelvis which could obscure or mimic pathology. If symptoms persist, consider repeat exam with IV and oral contrast.. 3. Moderate amount of retained colonic feces. 4. Small amount fluid in the cul-de-sac Dictated by: Jeff Summers MD 04/24/2020 10:09 Jeff Summers MD in OV 04/24/2020 10:09
--- NOTE | 2020-04-24 09:06 | PC.NURSE ---
Patient and son (who is in room w/ pt) advised she cannot drive prior to administering Pain medication. Patient verbally stated she understood as well as the son.
--- NOTE | 2020-04-24 09:24 | PC.NURSE ---
pt gone to radiology
--- NOTE | 2020-04-24 09:25 | PC.NURSE ---
pt returning from radiology
--- NOTE | 2020-04-24 09:50 | PC.NURSE ---
PO challenge requested by MD and started at this time.
--- NOTE | 2020-04-24 10:21 | PC.NURSE ---
PO challenge complete. Pt reports no issues and denies nausea or vomiting.
== END 2020-04-24 10:41 | disposition home or self-care (01) ==
PROVIDERS: Emergency Provider Physician Assistant
DX: A04.4 Other intestinal Escherichia coli infections (principal); E78.5 Hyperlipidemia, unspecified; R10.84 Generalized abdominal pain
CPT/HCPCS: 74176; 80053; 81001; 81025; 85025; 96365; 96375; 96376; 99284; J2405

== ENCOUNTER → 2020-08-23 13:03 | Outpatient (POV) | payer OTHER, SELFPAY | PROVIDERS: Visit Provider Dermatology | DX: Z00.00 Encounter for general adult medical examination without abnormal findings (principal) ==

== ENCOUNTER 2021-05-19 16:19 | Emergency (ER) | payer BC, OTHER, SELFPAY ==
[2021-05-19 16:32] VITALS: BP 140/88; PULSE 91; RESP 18; TEMP 37; O2SAT 99; BMI 22.3
[2021-05-19 16:45] LABS: Apearance,Urine Clear (Clear); Bilirubin,Urine Negative (Negative); Blood, Urine Negative (Negative); Color,Urine Yellow (Yellow); Glucose,Urine (UA) Negative (Negative); Ketones,Urine Negative (Negative); PH,Urine 7.5 (5.0-8.5); Protein,Urine Negative (Negative); Specific Gravity, Urine 1.015 (1.005-1.030); UTC Leukocyte Esterase,Urine Negative (Negative); UTC Nitrate,Urine Negative (Negative); Urobilinogen,Urine 0.2 EU/dl (0.2)
--- NOTE | 2021-05-19 17:11 | HMH.EDUTC ---
[facility] [place] Clinical Impression: Low back pain Qualifiers: Chronicity: acute Back pain laterality: bilateral Sciatica presence: without sciatica Qualified Code(s): M54.50 - Low back pain, unspecified Thoracic back pain Qualifiers: Chronicity: acute Back pain laterality: bilateral Qualified Code(s): M54.6 - Pain in thoracic spine Disposition: Home, Self-Care Condition on Discharge: Good Instructions: DI for Low Back Pain, Low Back Pain Additional Instructions: Go home and rest. It would be best if you rested tomorrow too. No heavy lifting. No twisting. Follow up with your regular doctor if your symptoms perist. GO TO THE ER FOR ANY WORSENING SYMPTOMS OR CONCERN, ESPECIALLY BOWEL OR BLADDER ISSUES, SADDLE AREA NUMBNESS, FEVER, ETC Referrals: Arpan Cary MD [Primary Care Provider] - Time of Disposition: 17:15 Medical Decision Making - Medical Records Medical records reviewed: No: I reviewed the patient's medical records. - Hood Inquiry Pt receiving controlled substance: No Vital Signs: 05/19/21 16:32 Temperature 98.6 F Temperature Source Oral Pulse Rate [Left] 91 H Respiratory Rate 18 Blood Pressure [Right Arm] 140/88 Blood Pressure Mean [Right Arm] 105 02 Sat by Pulse Oximetry 99 - Lab Data Lab results reviewed: Yes: I reviewed the patient's lab results. Lab Results 05/19/21 16:44: Urine Color Yellow, Urine Appearance Clear, Urine pH 7.5, Ur Specific [place] 1.015, Urine Protein Negative, Urine Glucose (UA) Negative, Urine Ketones Negative, Urine Blood Negative, Urine Nitrate Negative, Urine Bilirubin Negative, Urine Urobilinogen 0.2, Ur Leukocyte Esterase Negative Orders (Tests/Meds): ORDERS Category Date Time Status Urine Culture Stat Micro 05/19/21 16:44 Ordered Medical Decision Narrative: She refused a covid test and she denied that her back pain could be pleuritic or body aches. [facility] [place] - General Stated complaint: Possible UTI Time Seen by Provider: 05/19/21 17:11 Mode of Arrival: Ambulatory Source of Information: Patient Limitations: No Limitations Description of Symptoms (Recalled from Triage Doc. by RN): pt c/o urinary frequency. HEENT Symptoms (Recalled from RN notes): No Resp Symptoms (Recalled from RN notes): No Skin Symptoms (Recalled from RN notes): No MS Symptoms (Recalled from RN notes): No Functional Status (Recalled from RN notes): wnl - History of Present Illness Provider Complaint: She states that since yesterday she has had low back pain and pain in the middle of her back also. She is here to be checked for a UTI. She gets UTI's at times. She denies any hematuria, frequency, dysuria or other urinary symptoms. - Related Data Previous Rx's Medication Instructions Recorded Phenazopyridine HCl [Pyridium 200 pow PO TID #6 tab 01/19/20 200mg Tablet] Sulfamethoxazole/Trimethoprim 1 each PO BID 10 Days #20 tab 01/19/20 [Bactrim DS tablet] Ciprofloxacin HCl [Cipro 500mg 500 mg PO BID #20 tab 04/24/20 Tab] metroNIDAZOLE [Flagyl 500mg 500 mg PO TID 10 Days #30 tab 04/24/20 Tablet] Allergies Allergy/AdvReac Type Severity Reaction Status Date / Time No Known Allergies Allergy Verified 06/26/19 13:47 - Worker's Comp Is this a Worker's Comp case?: No [facility] History - Hepatitis A Screen Drug use history?: No High risk sexual behaviors?: No History of sexually transmitted infection?: No Currently employed?: No Childcare worker?: No Do you have indoor plumbing?: Yes Do you have electricity?: Yes Attestation statement:: This patient has been screened for Hepatitis A risk factors. I have reviewed the patient's past medical history: Yes Medical History: Reports:: Hyperlipidemia Denies:: Cancer, Diabetes Mellitus Type 1, Diabetes Mellitus Type 2, MRSA, Seizures Other Medical History: Denies: Blood Transfusion Reaction Other Surgeries: Yes: Cholecystectomy, Tubal Ligation, Other. No: Amp
[2021-05-19 17:28] VITALS: BP 140/88; PULSE 91; RESP 18; TEMP 37
== END 2021-05-19 17:29 | disposition home or self-care (01) ==
PROVIDERS: Emergency Provider Nurse Practitioner Family; PCP Internal Medicine Adolescent Medicine
DX: M54.50 Low back pain, unspecified (principal); M54.6 Pain in thoracic spine; E78.5 Hyperlipidemia, unspecified
CPT/HCPCS: 81003; 87086; 87088; 87186; 99202; G0463

== ENCOUNTER → 2021-06-01 14:49 | Outpatient (CLI) | payer BC, SELFPAY ==
--- NOTE | 2021-06-01 14:49 | US_ITS ---
FINAL REPORT CLINICAL HISTORY: post ablation pain-- RT OV RTEMOVED FINDINGS: Transvaginal sonographic images of the pelvis were obtained. The uterus is retroverted and measures 7.9 x 4.1 x 4.5 cm. The endometrium measures 4 mm, which is within normal limits. There is hyperechoic focus in the posterior uterine fundus measuring 1.6 x 0.9 x 1.0 cm and may represent a uterine fibroid. The right ovary is not visualized which is consistent with patient history of surgical removal. The left ovary measures 2.9 cm cm in length. Normal blood flow seen to the ovaries. There is no evidence of free fluid. IMPRESSION: Hyperechoic focus in the uterus, may represent a uterine fibroid. Right ovary surgically absent. Reviewed, Interpreted and Dictated by Benedict Joyce III, MD Transcribed by Pippa Ruff Authenticated by Benedict Joyce III, MD on 06/01/2021 04:27:36 PM [facility]
== END ==
PROVIDERS: PCP Internal Medicine Adolescent Medicine; Visit Provider Obstetrics & Gynecology
DX: R10.2 Pelvic and perineal pain (principal)
CPT/HCPCS: 76830

== ENCOUNTER → 2021-07-24 16:36 | Outpatient (CLI) | payer BC, SELFPAY ==
--- NOTE | 2021-07-24 16:36 | MM_ITS ---
PROCEDURE INFORMATION: Exam: Bilateral Screening 3D Mammography Exam date and time: 07/24/2021 4:32 PM Age: 41 years old Clinical indication: Baseline. Concern for palpable mass near the left nipple. No family history of breast cancer. TECHNIQUE: Imaging protocol: Bilateral Screening tomosynthesis and 2D mammography including computer-aided detection (CAD) when performed. Triangular marker placed at area of concern in the left breast. COMPARISON: No relevant prior studies available. FINDINGS: MAMMOGRAPHY: Breast composition: The breast tissue is heterogeneously dense, which may obscure small masses. Mass: None. Architectural distortion: None. Calcifications: Bilateral regional calcifications in both upper outer quadrants, many seen to layer even in the MLO view. Asymmetric density: None. Skin thickening: None. Axillary adenopathy: None. Other: No focal findings in the left retroareolar region corresponding to the area of palpable concern. IMPRESSION: Patient to be recalled for bilateral diagnostic mammogram with left spot compression in the CC and true lateral views at the area of clinical concern with left breast ultrasound, for further evaluation of palpable concern; as well as bilateral magnification views in the CC and true lateral views for further evaluation of calcifications in both upper outer breasts. Further evaluation of a palpable abnormality should be based on clinical grounds regardless of radiographic findings or lack thereof. ASSESSMENT: BI-RADS Category 0: Incomplete- Need Additional Imaging Evaluation and/or Prior Mammograms for Comparison
== END ==
PROVIDERS: PCP Internal Medicine Adolescent Medicine; Visit Provider Obstetrics & Gynecology
DX: Z12.31 Encounter for screening mammogram for malignant neoplasm of breast (principal)
CPT/HCPCS: 77063; 77067

== ENCOUNTER → 2021-08-01 14:24 | Outpatient (CLI) | payer BC, SELFPAY ==
--- NOTE | 2021-08-01 14:24 | MM_ITS ---
PROCEDURE INFORMATION: Exam: MG Bilateral Diagnostic Breast Tomosynthesis Exam date and time: 08/01/2021 2:29 PM Age: 41 years old Clinical indication: Recall on the basis of screening mammogram from 07/24/2021 for further evaluation bilateral regional calcifications and left periareolar palpable lump. Please also refer to ultrasound report of the same date which was dictated separately. TECHNIQUE: Imaging protocol: Bilateral Diagnostic tomosynthesis and 2D mammography including computer-aided detection (CAD) when performed. Unilateral or bilateral exam. COMPARISON: MG MM DIG SCREENING MAMM BI W/CAD 07/24/2021 4:32 PM FINDINGS: MAMMOGRAPHY: Spot magnification views show regional calcifications in both upper outer quadrants, some layering in a benign microcyst pattern with no suspicious morphology or groupings. Spot compression in the left periareolar region at the area of palpable concern shows no focal findings. IMPRESSION: Probably benign bilateral calcifications, suggest six-month follow-up bilateral diagnostic mammogram with magnification views. Please refer to the ultrasound report regarding the recommendations for the left periareolar palpable lump (no related mammographic findings). ASSESSMENT: BI-RADS Category 3: Probably benign
--- NOTE | 2021-08-01 14:24 | US_ITS ---
PROCEDURE INFORMATION: Exam: US Left Breast, Complete Exam date and time: 08/01/2021 3:20 PM Age: 41 years old Clinical indication: Follow up from diagnostic mammogram of 08/01/2021 for sonographic evaluation of left retroareolar palpable lump. TECHNIQUE: Imaging protocol: Complete ultrasound of all four quadrants of the Left breast and the retroareolar regions, including ultrasound of the axilla when performed. COMPARISON: MG MM DIG SCREENING MAMM BI W/CAD 07/24/2021 4:32 PM FINDINGS: Breast: Left sonography, all 4 quadrants, retroareolar and axilla. Corresponding to the area of palpable concern, retroareolar, 1 cm from the nipple, is a oval, solid, avascular mass measuring 0.4 by 0.8 x 0.4 cm, which appears contained within echogenic skin layer, with no tract demonstrated. Several mildly complicated clusters of cysts, at 1 o'clock 5 cm from the nipple measuring 0.5 x 0.5 cm and at 3 o'clock 5 cm from the nipple measuring 1.2 x 0.5 x 1.0 cm. Scattered benign-appearing simple and mildly complicated sub cm cysts. Mildly dilated retroareolar ducts. No suspicious cystic or suspicious solid mass demonstrated. Sonographically unremarkable left axillary lymph node. IMPRESSION: Corresponding to the palpable concern is a 0.8 cm solid mass which appears contained within the echogenic skin layer. This sonographic apperance suggests a sebaceous cyst, and if clinical appearance also indicates sebaceous cyst, then suggest 6 month follow up targeted left breast ultrasound, unless otherwise clinically indicated. Further evaluation of a palpable abnormality should be based on clinical grounds regardless of radiographic findings or lack thereof. Several mildly complicated clusters of cysts at 1 and 3 o'clock, suggest six-month follow-up targeted left breast ultrasound, unless otherwise clinically indicated. (Follow up bilateral calcifications, noted on screening mammogram from 07/24/2021 as per the recommendations in the diagnostic mammogram of 08/01/2021.) ASSESSMENT: BI-RADS Category 3: Probably benign
== END ==
PROVIDERS: PCP Internal Medicine Adolescent Medicine; Visit Provider Obstetrics & Gynecology
DX: R92.8 Other abnormal and inconclusive findings on diagnostic imaging of breast (principal)
CPT/HCPCS: 76641; 77062; 77066; G0279

== ENCOUNTER → 2021-08-19 11:02 | Outpatient (CLI) | payer BC, SELFPAY ==
[2021-08-19 11:39] LABS: Basophils # 0.2 K/mm3 (0-0.2); Basophils % 1.7 % (0.1-2.0); Eosinophils # 0.2 K/mm3 (0.0-0.4); Eosinophils % 1.4 % (0.1-12.0); Hematocrit 41.2 % (37.0-47.0); Hemoglobin 13.4 g/dL (12.2-16.2); Lymphocytes # 1.5 K/mm3 (0.7-4.5); Mean Corpuscular HGB Conc 32.5 g/dL (31.8-35.4); Mean Corpuscular Hemoglobin 29.7 pg (27.0-31.2); Mean Corpuscular Volume 91.1 fl (81-99); Mean Platelet Volume 8.8 fl (7.4-10.4); Monocytes # 0.6 K/mm3 (0.1-1.0); Monocytes % 4.9 % (1.7-9.3); Neutrophils # 9.4 K/mm3 (1.8-7.8); Platelet Count 319 K/mm3 (142-424); Red Blood Count 4.52 M/mm3 (4.20-5.40); Red Cell Distribution Width 12.4 % (11.5-17.5); White Blood Count 11.9 K/mm3 (4.8-10.8)
[2021-08-19 13:00] LABS: Alanine Aminotransferase 13 U/L (12-78); Albumin Level 4.4 g/dl (3.5-5.0); Albumin/Globulin Ratio 1.8 (1.1-1.8); Alkaline Phosphatase 58 U/L (38-126); Anion Gap 11.3 mEq/L (5-15); Aspartate Amino Transferase 22 U/L (14-36); Bilirubin,Total 0.8 mg/dl (0.2-1.3); Blood Urea Nitrogen 11 mg/dl (7-17); Calcium 9.6 mg/dl (8.4-10.2); Carbon Dioxide 28 mmol/L (22.0-30.0); Chloride 104 mmol/L (98-107); Chol/HDL Ratio 3.6 (1-3.5); Cholesterol 197 mg/dl (140-200); Estimated Glomerular Filt Rate 79 ml/min (>60); GFR (African American) 95 ML/MIN (>60); Globulin 2.4 g/dL (1.3-3.2); Glucose 94 mg/dl (74-100); HDL Cholesterol 55 mg/dl (40-60); Potassium 4.3 mmoL/L (3.5-5.1); Sodium 139 mmol/L (136-145); Total Protein,Serum 6.8 g/dl (6.3-8.2); Triglycerides 114 mg/dl (30-150); VLDL Cholesterol 23 mg/dL (0-40)
[2021-08-19 13:11] LABS: Direct LDL Cholesterol 99.12 mg/dL (100-129)
== END ==
PROVIDERS: Visit Provider Nurse Practitioner Family
DX: E78.2 Mixed hyperlipidemia (principal); R30.9 Painful micturition, unspecified; N39.0 Urinary tract infection, site not specified; B96.20 Unspecified Escherichia coli [E. coli] as the cause of diseases classified elsewhere
CPT/HCPCS: 36415; 80053; 80061; 85025; 87086; 87088; 87186

== ENCOUNTER → 2022-02-15 05:00 | Outpatient (CLI) | payer BC, SELFPAY | PROVIDERS: PCP Nurse Practitioner Family; Visit Provider Nurse Practitioner Family | DX: B35.1 Tinea unguium (principal) | CPT/HCPCS: 87102; 87206; 87220 ==

== ENCOUNTER 2023-03-03 09:26 | Emergency (ER) | payer BC, SELFPAY ==
[2023-03-03 09:35] VITALS: BP 148/84; PULSE 76; RESP 18; TEMP 36.6; O2SAT 99; BMI 24.4
[2023-03-03 09:52] LABS: Apearance,Urine Clear (Clear); Bilirubin,Urine Negative (Negative); Blood, Urine 1+ (Negative); Color,Urine Yellow (Yellow); Glucose,Urine (UA) Negative (Negative); Ketones,Urine Negative (Negative); Protein,Urine Negative (Negative); UTC Leukocyte Esterase,Urine 1+ (Negative); UTC Nitrate,Urine Negative (Negative); Urobilinogen,Urine 0.2 EU/dl (0.2)
--- NOTE | 2023-03-03 10:00 | EXP.UTC ---
Discharge Plan Disposition Patient Disposition: Home, Self-Care Condition: Good Prescriptions Prescriptions: New nitrofurantoin monohyd/m-cryst [Macrobid] 100 mg capsule 100 mg PO Q12H 7 Days Qty: 14 0RF Rx Instructions: must administer with a meal/food phenazopyridine [Pyridium] 200 mg tablet 200 mg PO Q8H 2 Days Qty: 6 0RF Referrals Follow up/Referrals: Provider,Referral, MD [Primary Care Provider] - See instructions Activity Restrictions/Add. Instructions Additional Instructions/Restrictions: *Increase fluids. Water not Soda or Tea *Start antibiotic immediately and be sure to take as ordered for the FULL length of time although you should start to see improvement over the next 48 hours *Pyridium as needed Remember this medication will turn your urine . This is normal but it will stain what ever it gets on *You should not use Pyridium for more than 48 hours. If so , follow up with your primary physician to review urine culture and ensure that antibiotic is adequate for infection *Be SURE to follow up anytime for new or worsening symptoms with your family doctor. AND in 48 hours for urine culture results with your family doctor, if you do not have a doctor then you may call back to the [facility] for urine culture results and further treatment. We do recommend that you choose and establish care with a Primary Care Physician. ?AND follow up with them ?in 10-14 days to repeat UA to ensure infection is resolved and blood no longer present *Be sure to let your PCP know that we sent urine cultures from the [facility] so they can follow up to ensure that you area the on the correct antibiotic Call your doctor office and make appointment for 48 hours (2 days from today) ?to follow up and get the results of your urine culture and further treatment Clinical Impressions Clinical Impression: UTI (urinary tract infection) Qualifiers: Urinary tract infection type: site unspecified Hematuria presence: with hematuria Qualified Code(s): N39.0 - Urinary tract infection, site not specified; R31.9 - Hematuria, unspecified Instructions Patient Instructions: DI for Urinary Tract Infection (UTI), Urinary Tract Infection, Nitrofurantoin Discharge ED Provider: Rahel Fonseca [facility] [place] General Stated complaint: frequency and burning when urinates Mode of Arrival: Ambulatory Source of Information: Patient Limitations: No Limitations Time Seen by Provider: 03/03/23 10:00 Description of Symptoms (Recalled from Triage Doc. by RN): PATIENT C/O LOWER ABDOMINAL PAIN AND PRESSURE AND ODOR TO URINE X 1 WEEK HEENT Symptoms (Recalled from RN notes): No Resp Symptoms (Recalled from RN notes): No Skin Symptoms (Recalled from RN notes): No MS Symptoms (Recalled from RN notes): No Functional Status (Recalled from RN notes): WNL History of Present Illness Provider Complaint: Patient states for the last week she has been having pressure in her lower abdomen like she has to go and feels like she has been urinating more frequently States that she has hx of UTI and this feels like it does then States that this morning she noticed her urine looked cloudy and had a strong odor so she came in to get checked Related Data Previous Rx's Medication Instructions Recorded nitrofurantoin 100 mg PO Q12H 7 days #14 caps 03/03/23 monohydrate/macrocrystals 100 mg capsule (Macrobid) phenazopyridine 200 mg tablet 200 mg PO Q8H pain 2 days #6 tabs 03/03/23 (Pyridium) Allergies Allergy/AdvReac Type Severity Reaction Status Date / Time No Known Allergies Allergy Verified 10/04/22 13:14 Worker's Comp Is this a Worker's Comp case?: [facility] Disclaimer: The information contained in this section may have been updated after the patient was seen, as this information can be updated by other users. Medical History (Updated 03/03/23 @ 10:09 by Rahel Fonseca APRN) Congestion of both ears Eustachian tube dysfunction Hearing loss Social History
[2023-03-03 10:09] VITALS: BP 148/84; PULSE 76; RESP 18; TEMP 36.6; O2SAT 99
== END 2023-03-03 10:13 | disposition home or self-care (01) ==
PROVIDERS: Emergency Provider Nurse Practitioner
DX: N39.0 Urinary tract infection, site not specified; B96.4 Proteus (mirabilis) (morganii) as the cause of diseases classified elsewhere; R31.9 Hematuria, unspecified
CPT/HCPCS: 81003; 87086; 99212; 99214; G0463

== ENCOUNTER 2023-04-28 09:17 | Emergency (ER) | payer BC, OTHER, SELFPAY ==
[2023-04-28 09:35] VITALS: BP 146/84; PULSE 83; RESP 19; TEMP 36.8; O2SAT 97; BMI 22.1
--- NOTE | 2023-04-28 09:51 | ED_ITS ---
Discharge Plan Disposition Patient Disposition: Home, Self-Care Condition: Good Prescriptions Prescriptions: New benzonatate 100 mg capsule 100 mg PO TID PRN (Reason: cough) Qty: 30 0RF fluticasone propionate [Flonase Allergy Relief] 50 mcg/actuation spra y,suspension 1 - 2 spray intranasal DAILY Qty: 16 0RF Rx Instructions: administer into each nostril daily azithromycin [Zithromax Z-Alden] 250 mg tablet See Rx Instructions .ROUTE .COMPLEX 5 Days Qty: 6 0RF Rx Instructions: For 250 mg dose pack: take 500 mg today (day 1), then 250 mg for 4 days (days 2-5) methylprednisolone [Medrol (Alden)] 4 mg tablets,dose pack See Rx Instructions .Route .COMPLEX 6 Days Qty: 21 0RF Rx Instructions: taper pack; Referrals Follow up/Referrals: Arpan Cary MD [Primary Care Provider] - See instructions Activity Restrictions/Add. Instructions Additional Instructions/Restrictions: *Monitor Temp, Over the counter Motrin or Tylenol as directed/as needed Tylenol every 4 hours and Motrin every 6 hours (as long as your family doctor has told you that you can take it) for fever or pain. and straight to ER if unable to lower temp less than 101.0 after medication given *Warm salt water gargles may help to soothe the throat *Throat Lozenges? *Warm fluids like tea with honey may help to soothe the throat? *Sleep elevated *Humidifier/Vaporizer Take medication as prescribed Follow up IMMEDIATELY for new or worsening symptoms or no Noticeable improvement over the next 48-72 hours. 911 for difficulty breathing or swallowing Clinical Impressions Clinical Impression: Otitis media Qualifiers: Otitis media type: unspecified Laterality: left Qualified Code(s): H66.92 - Otitis media, unspecified, left ear Instructions Patient Instructions: Middle Ear Infection, Amoxicillin Discharge ED Provider: Rahel Fonseca [facility] General Stated complaint: fever, fatigue, headache Mode of Arrival: Ambulatory Source of Information: Patient Limitations: No Limitations Time Seen by Provider: 04/28/23 09:51 Description of Symptoms (Recalled from Triage Doc. by RN): PATIENT C/O BODY ACHES, FATIGUE, AND HEADACHE SINCE YESTERDAY HEENT Symptoms (Recalled from RN notes): Yes Resp Symptoms (Recalled from RN notes): No Skin Symptoms (Recalled from RN notes): No MS Symptoms (Recalled from RN notes): No Functional Status (Recalled from RN notes): WNL History of Present Illness Provider Complaint: Patient states that for the last couple of days she has been having fatigue, headache, body aches, pain/pressure in her ears and over all not feeling well States that she hasnt had a fever that she is aware of but felt like she did and when she checked it it was 99.0 so today when she was still not feeling well she came in Related Data Previous Rx's Medication Instructions Recorded azithromycin 250 mg tablet See Rx Instructions PO .COMPLEX 5 04/28/23 (Zithromax Z-Alden) days #6 tabs benzonatate 100 mg capsule 100 mg PO TID PRN cough #30 caps 04/28/23 fluticasone propionate 50 1 - 2 spray intranasal DAILY #16 04/28/23 mcg/actuation nasal grams spray,suspension (Flonase Allergy Relief) methylprednisolone 4 mg tablets in See Rx Instructions .Route 04/28/23 a dose pack (Medrol (Alden)) .COMPLEX 6 days #21 tabs Allergies Allergy/AdvReac Type Severity Reaction Status Date / Time No Known Allergies Allergy Verified 10/04/22 13:14 Worker's Comp Is this a Worker's Comp case?: No [facility] Disclaimer: The information contained in this section may have been updated after the patient was seen, as this information can be updated by other users. Medical History (Updated 04/28/23 @ 10:01 by Rahel Fonseca APRN) Congestion of both ears Eustachian tube dysfunction Hearing loss Social History Smoking Status: Never smoker alcohol intake: current substance use type: denies use current occupational status: other Travel in the last 8 weeks: None household members: spouse and children housing: house ROS Obtained: Yes All systems reviewed & no additional complaints except as documented and Yes Systems reviewed as appropriate & no additional complaints except as documented Constitutional Constitutional: Reports system reviewed and no additional complaints, except as documented, Reports as per HPI, Reports body ache, Reports chills and Reports headache(s) Eyes Eyes: Reports system reviewed and no additional complaints, except as documented and Reports as per HPI ENT Ears, Nose, Mouth, and Throat: Reports system reviewed and no additional complaints, except as documented, Reports as per HPI, Reports otalgia and Reports headache(s) Cardiovascular Cardiovascular: Reports system reviewed and no additional complaints, except as documented and Reports as per HPI Respiratory Respiratory: Reports system reviewed and no additional complaints, except as documented and Reports as per HPI Gastrointestinal Gastrointestingal: Reports system reviewed and no additional complaints, except as documented and as per HPI Neurologic Neurologic: Reports headache(s) Physical Exam General General appearance: alert and in no apparent distress ENT ENT exam: Present mucous membranes moist Expanded ENT Exam TM/Canal exam: Left TM: erythema and bulging Respiratory Respiratory exam: Present normal lung sounds bilaterally; Absent respiratory distress or wheezes Cardiovascular Cardiovascular exam: Present regular rate, normal rhythm and normal heart sounds Neurological Exam Neurological exam: Present alert, oriented X3 and normal gait Medical Decision Making Hood Inquiry Pt receiving controlled substance: No Hood was queried for this patient: No Vital Signs: 04/28/23 09:35 Temperature 98.3 F Temperature Source Oral Pulse Rate [Left Brachial] 83 Respiratory Rate 19 Blood Pressure [Left Arm] 146/84 H Blood Pressure Mean [Left Arm] 104 Blood Pressure Source [Left Arm] Automatic Cuff Blood Pressure Position [Left Arm] Sitting 02 Sat by Pulse Oximetry 97 Oxygen Delivery Method Room Air Lab Data Lab results reviewed: Yes I reviewed the patient's lab results.
[2023-04-28 09:57] LABS: UTC Influenza A Antigen Negative (Negative)
[2023-04-28 09:58] LABS: UTC Influenza B Antigen Negative (Negative)
[2023-04-28 10:00] VITALS: BP 146/84; PULSE 83; RESP 19; TEMP 36.8; O2SAT 97
== END 2023-04-28 10:04 | disposition home or self-care (01) ==
PROVIDERS: Emergency Provider Nurse Practitioner; PCP Internal Medicine Adolescent Medicine
DX: H66.92 Otitis media, unspecified, left ear (principal); R51.9 Headache, unspecified; R50.9 Fever, unspecified; R53.83 Other fatigue; M79.18 Myalgia, other site
CPT/HCPCS: 87804; 99212; 99214; G0463

== ENCOUNTER 2023-07-08 11:14 | Outpatient (POV) | payer BC, OTHER, SELFPAY | END 2023-07-08 23:59 | disposition home or self-care (01) | LOC: SC 11:14 | PROVIDERS: Visit Provider Specialist/Technologist | DX: Z00.00 Encounter for general adult medical examination without abnormal findings (principal) ==

== ENCOUNTER 2023-07-30 10:59 | Outpatient (CLI) | payer BC, OTHER, SELFPAY ==
--- NOTE | 2023-07-30 | CA_ITS ---
APPROVED REPORT EXAM: Comprehensive 2D, Doppler, and color-flow Echocardiogram Classification Clerk: Afia Bahena CRT Ht: 5 ft 4 in Wt: 141lbs BSA: 1.69 BP: 132/88 mmHg Indications: Murmur, Palpitations, Fatigue 2D Dimensions LA Volume 29.00 mL LA Volume Index 16.80 mL/m2 (M/F) 16-34 M-Mode Dimensions RVDd 1.76 cm (0.9-2.6) LA Diam 3.08 cm (1.9-4.0) LVDd 4.67 cm (3.5-5.7) LVDs 2.86 cm (3.5-5.7) IVSd 0.85 cm (0.6-1.1) PWd 0.67 cm (0.6-1.1) EF (Teich) 69.10% FS 38.80% EDV (Teich) 100.80 mL TAPSE 2.13 (<1.7) ESV (Teich) 31.10 mL LV Diastology E Decel Time 150 (160-240 msec) E/A Ratio 1.48 MED A' 12.60 cm/s LAT A' 11.60 cm/s Aortic Valve AO Peak GR. 6.60 mmHg Mitral Valve MV E Max Griffin. 80.0 (40-130 cm/s) MV A Velocity 54.0 (40-130 cm/s) E/A Ratio 1.48 MV PHT 44.0 ms Pulmonary Valve PV Peak Velocity 167.0 (50-150 cm/s) Tricuspid Valve TR P. Velocity 222.00 cm/s RAP Estimate 10.00 mmHg RVSP 29.70 mmHg Left Ventricle The left ventricle is normal size. The left ventricular systolic function is normal. The left ventricular ejection fraction is within the normal range. There is normal LV wall thickness. There is normal LV segmental wall motion. The left ventricular diastolic function is normal. LVEF is 55%. Right Ventricle The right ventricle is normal size. The right ventricular systolic function is normal. Atria The left atrium size is normal. The right atrium size is normal. There is no Doppler evidence of interatrial shunt. Aortic Valve The aortic valve opens well. There is no aortic valvular stenosis. No aortic regurgitation is present. Mitral Valve The mitral valve is normal in structure. No evidence of mitral valve stenosis. There is no mitral valve regurgitation noted. Tricuspid Valve The tricuspid valve leaflets are thin and pliable. Mild tricuspid regurgitation. RVSP is 20-25 mmHg. Pulmonic Valve The pulmonary valve is normal in structure. Trace pulmonic regurgitation. Great Vessels The aortic root is normal in size. The ascending aorta is normal in size. IVC is normal in size and collapses >50% with inspiration. Pericardium There is no pericardial effusion. Other Information Study Quality: Adequate Conclusion Normal biventricular systolic function. Mild TR. Electronically signed by : Octavia Wang MD 08/02/2023 21:54:00
--- NOTE | 2023-07-30 15:46 | MM_ITS ---
PROCEDURE INFORMATION: Exam: MG Bilateral Screening 3D Mammography Exam date and time: 07/30/2023 3:39 PM Age: 43 years old Clinical indication: Screening examination. Recommended for six-month follow-up bilateral calcifications and for probably benign sonographic findings in the left retroareolar region and at 1 and 3 o'clock from 08/01/2021. TECHNIQUE: Imaging protocol: Bilateral Screening tomosynthesis and 2D mammography including computer-aided detection (CAD) when performed. COMPARISON: 1. MG MM DIG MAMM BI DX W/CAD 08/01/2021 2:29 PM 2. MG MM DIG SCREENING MAMM BI W/CAD 07/24/2021 4:32 PM 3. US BREAST LT COMPLETE 08/01/2021 3:20 PM FINDINGS: MAMMOGRAPHY: Breast composition: Mass: None. Architectural distortion: None. Calcifications: Similar-appearing bilateral calcifications in both upper outer quadrants given non magnified views. Asymmetric density: None. Skin thickening: None. Axillary adenopathy: None. IMPRESSION: Patient will be recalled for bilateral diagnostic mammography with magnification views in true lateral on both sides and left sonography, to complete follow-up on bilateral calcifications and left-sided nodules. ASSESSMENT: BI-RADS Category 0: Incomplete: Need Additional Imaging Evaluation and/or Prior Mammograms for Comparison
== END 2023-07-30 23:59 ==
LOC: RT 11:00
PROVIDERS: PCP Orthopaedic Surgery; Visit Provider Nurse Practitioner Family
DX: R01.1 Cardiac murmur, unspecified (principal); Z12.31 Encounter for screening mammogram for malignant neoplasm of breast
CPT/HCPCS: 77063; 77067; 93306

== ENCOUNTER 2023-08-15 12:47 | Outpatient (CLI) | payer BC, OTHER, SELFPAY ==
--- NOTE | 2023-08-15 12:51 | MM_ITS ---
PROCEDURE INFORMATION: Exam: US Left Breast, Complete MG Bilateral Diagnostic Breast Tomosynthesis Exam date and time: 08/15/2023 2:07 PM Age: 43 years old Clinical indication: Patient recalled on the basis of a screening mammogram for further evaluation; Bilateral breasts; calcifications. Follow-up for probable cystic change in the left breast TECHNIQUE: Imaging protocol: Complete ultrasound of all four quadrants of the left breast and the retroareolar regions, including ultrasound of the axilla when performed. Bilateral Diagnostic tomosynthesis and 2D mammography including computer-aided detection (CAD) when performed. Unilateral or bilateral exam. COMPARISON: US BREAST LT COMPLETE 08/01/2021 3:20 PM FINDINGS: MAMMOGRAPHY: Breast composition: The breasts are heterogeneously dense, which may obscure small masses. Breast mammogram findings: Magnification views of both breasts demonstrate predominantly layering calcifications on the right and scattered calcifications on the left without tight clustering or significant pleomorphism. ULTRASOUND: Breast ultrasound findings: Sonographic images of the right breast including the retroareolar region, all 4 quadrants and the axilla do not demonstrate any solid masses. Scattered subcentimeter cysts are noted. No architectural distortion or acoustical shadowing. No skin thickening or axillary adenopathy. IMPRESSION: 1. Probably benign calcifications in both upper outer quadrants. A six-month follow-up diagnostic bilateral mammogram with magnification views is recommended to ensure stability over time. 2. There may be a typographical error, in that, the sonographic images are labeled right breast instead of left breast. Technical correlation is strongly needed. Benign cystic change is noted on sonography ASSESSMENT: BI-RADS Category 3: Probably benign.
== END 2023-08-15 23:59 | disposition home or self-care (01) ==
LOC: RAD 12:47
PROVIDERS: PCP Nurse Practitioner Family; Visit Provider Nurse Practitioner Family
DX: R92.8 Other abnormal and inconclusive findings on diagnostic imaging of breast (principal)
CPT/HCPCS: 76641; 77062; 77066; G0279